=== PATIENT | female | born 1985 | race Caucasian/White ===

== ENCOUNTER → 2016-07-31 | Outpatient (REF) | payer MEDICARE, MEDICAID | LOC: M LAB REF 16:30 | PROVIDERS: ATTEND Nurse Practitioner Women's Health | DX: Z11.3 Encounter for screening for infections with a predominantly sexual mode of transmission (principal) ==

== ENCOUNTER → 2016-08-01 | Outpatient (CLI) | payer MEDICARE, MEDICAID ==
[2016-08-01 14:21] LABS: CONTROL LINE INT CTR LINE PRESENT; HIV SCRN NEGATIVE (NEGATIVE); HIV SCRN1 NEGATIVE (NEGATIVE)
== END ==
LOC: M WUC 09:41
PROVIDERS: ATTEND Nurse Practitioner Women's Health
DX: Z11.3 Encounter for screening for infections with a predominantly sexual mode of transmission (principal)

== ENCOUNTER → 2016-11-25 | Outpatient (REF) | payer MEDICARE | LOC: M LAB REF 16:26 | PROVIDERS: ATTEND Nurse Practitioner Women's Health | DX: R30.0 Dysuria (principal) ==

== ENCOUNTER 2017-01-29 09:27 | Emergency (ER) | payer MEDICARE, MEDICAID ==
[~2017-01-29] VITALS: Ht 170.2 cm; Wt 63.6 kg
[2017-01-29] MEDS ORDERED: BACL10TA2 (09:34)
[2017-01-29] MEDS ORDERED: TRI-TAB16 (09:34)
[2017-01-29] MEDS ORDERED: CYCL10TA PO (10:34)
[2017-01-29] MEDS ORDERED: MOBI4TAB PO (10:34)
[2017-01-29 10:51] VITALS: BP 122/81
--- NOTE | 2017-01-29 10:52 | REP ---
THORACIC SPINE: AP and lateral views of the thoracic spine are performed with three total views obtained. I do not see evidence of a compression fracture or malalignment. There are spinal rods and pedicle screws seen between the levels of T5 and T12. There is mild diffuse spurring. IMPRESSION: No acute fracture or dislocation. Spinal rods and screws appear intact. Signed by Michele Blackwell MD 01/29/2017 01:31 P
== END 2017-01-29 10:53 | disposition home or self-care (01) ==
LOC: M ED 09:27
DX: M54.6 Pain in thoracic spine (principal)

== ENCOUNTER → 2017-08-24 | Outpatient (REF) | payer MEDICARE ==
[2017-08-25 13:09] LABS: CHLAMYDIA DNA AMPLIFICATION NEGATIVE (NEGATIVE); GC DNA AMPLIFICATION NEGATIVE (NEGATIVE)
== END ==
LOC: M LAB REF 10:24
DX: R39.15 Urgency of urination (principal); R82.90 Unspecified abnormal findings in urine
CPT/HCPCS: 87088; 87186

== ENCOUNTER → 2017-09-15 | Outpatient (REF) | payer MEDICARE ==
[2017-09-15 18:50] LABS: APPEARANCE, URINE TURBID (CLEAR); BACTERIA, URINE AUTO 2+ (NEGATIVE); BILIRUBIN, URINE AUTO NEGATIVE (NEGATIVE); BLOOD, URINE BLOOD 2+ (NEGATIVE); COLOR, URINE YELLOW (YELLOW); GLUCOSE, URINE (UA) AUTO NEGATIVE (NEGATIVE); KETONE, URINE AUTO NEGATIVE (NEGATIVE); LEUKOCYTE ESTERASE, URINE AUTO 3+ (NEGATIVE); NITRITE, URINE AUTO NEGATIVE (NEGATIVE); PROTEIN, URINE AUTO NEGATIVE (NEGATIVE); RBC, URINE AUTO 30 /HPF (0-3); SPECIFIC GRAVITY URINE AUTO 1.012 (1.002-1.035); SQUAMOUS EPITHELIAL CELL UR AU 61 /HPF (0-6); UROBILINOGEN, URINE AUTO 0.2 mg/dL (0.0-2.0); WBC, URINE AUTO TNTC /HPF (0-3)
== END ==
LOC: M LAB REF 17:25
DX: N39.0 Urinary tract infection, site not specified (principal)
CPT/HCPCS: 81001

== ENCOUNTER → 2017-10-04 | Outpatient (REF) | payer OTHER, MEDICARE ==
[2017-10-04 12:51] LABS: APPEARANCE, URINE CLEAR (CLEAR); BACTERIA, URINE AUTO NEGATIVE (NEGATIVE); BILIRUBIN, URINE AUTO NEGATIVE (NEGATIVE); BLOOD, URINE BLOOD NEGATIVE (NEGATIVE); COLOR, URINE COLORLESS (YELLOW); GLUCOSE, URINE (UA) AUTO NEGATIVE (NEGATIVE); KETONE, URINE AUTO NEGATIVE (NEGATIVE); LEUKOCYTE ESTERASE, URINE AUTO NEGATIVE (NEGATIVE); NITRITE, URINE AUTO NEGATIVE (NEGATIVE); PROTEIN, URINE AUTO NEGATIVE (NEGATIVE); RBC, URINE AUTO 0 /HPF (0-3); SPECIFIC GRAVITY URINE AUTO 1.001 (1.002-1.035); SQUAMOUS EPITHELIAL CELL UR AU 0 /HPF (0-6); UROBILINOGEN, URINE AUTO 0.2 mg/dL (0.0-2.0); WBC, URINE AUTO 0 /HPF (0-3)
== END ==
LOC: M LAB 12:16
DX: N39.0 Urinary tract infection, site not specified (principal)
CPT/HCPCS: 81001

== ENCOUNTER → 2017-10-05 | Outpatient (REF) | payer OTHER, MEDICARE ==
[2017-10-05 18:11] LABS: APPEARANCE, URINE CLOUDY (CLEAR); BACTERIA, URINE AUTO 2+ (NEGATIVE); BILIRUBIN, URINE AUTO NEGATIVE (NEGATIVE); BLOOD, URINE BLOOD NEGATIVE (NEGATIVE); COLOR, URINE YELLOW (YELLOW); GLUCOSE, URINE (UA) AUTO NEGATIVE (NEGATIVE); KETONE, URINE AUTO NEGATIVE (NEGATIVE); LEUKOCYTE ESTERASE, URINE AUTO TRACE (NEGATIVE); MUCUS, URINE SMALL (NEGATIVE); NITRITE, URINE AUTO NEGATIVE (NEGATIVE); PROTEIN, URINE AUTO NEGATIVE (NEGATIVE); RBC, URINE AUTO 2 /HPF (0-3); SPECIFIC GRAVITY URINE AUTO 1.016 (1.002-1.035); SQUAMOUS EPITHELIAL CELL UR AU 28 /HPF (0-6); UROBILINOGEN, URINE AUTO 0.2 mg/dL (0.0-2.0); WBC, URINE AUTO 3 /HPF (0-3)
== END ==
LOC: M LAB REF 16:42
DX: N39.0 Urinary tract infection, site not specified (principal)

== ENCOUNTER → 2017-12-29 | Outpatient (REF) | payer OTHER, MEDICARE ==
[2017-12-29 17:29] LABS: ALBUMIN 4.4 GM/DL (3.2-5.2); ALBUMIN/GLOBULIN RATIO 1.42 (1.00-1.93); ALKALINE PHOSPHATASE 63 U/L (45-117); ALT/SGPT 27 U/L (12-78); ANION GAP 6 MEQ/L (8-16); AST/SGOT 19 U/L (7-37); BILIRUBIN,TOTAL 0.7 MG/DL (0.2-1.0); BLOOD UREA NITROGEN 15 MG/DL (7-18); CALCIUM LEVEL 8.9 MG/DL (8.5-10.1); CARBON DIOXIDE LEVEL 28 MEQ/L (21-32); CHLORIDE LEVEL 107 MEQ/L (98-107); CREATININE FOR GFR 0.73 MG/DL (0.55-1.30); GLOMERULAR FILTRATION RATE > 60.0 (>60); GLUCOSE, FASTING 72 MG/DL (70-100); MAGNESIUM LEVEL 2.2 MG/DL (1.8-2.4); POTASSIUM SERUM 3.8 MEQ/L (3.5-5.1); SODIUM LEVEL 141 MEQ/L (136-145); TOTAL PROTEIN 7.5 GM/DL (6.4-8.2)
[2017-12-29 17:41] LABS: BASO # 0.1 10^3/uL (0.0-0.2); BASO % 0.6 % (0.0-1.0); EOS # 0.2 10^3/uL (0.0-0.50); EOS % 2.1 % (0.0-3.0); HEMATOCRIT 37.2 % (36.0-47.0); HEMOGLOBIN 12.5 g/dl (12.0-15.5); IMMATURE GRANULOCYTE % 0.4 % (0-3.0); LYMPH # 2.2 10^3/uL (1.5-4.5); LYMPH % 20.5 % (24.0-44.0); MEAN CORPUSCULAR HEMOGLOBIN 29.5 pg (27.0-33.0); MEAN CORPUSCULAR HGB CONC 33.6 g/dl (32.0-36.5); MEAN CORPUSCULAR VOLUME 87.7 fl (80.0-96.0); MONO # 0.9 10^3/uL (0.0-0.8); MONO % 8.4 % (0.0-5.0); NEUTROPHILS # 7.4 10^3/uL (1.8-7.7); PLATELET COUNT, AUTOMATED 231 10^3/uL (150-450); RED BLOOD COUNT 4.24 10^6/uL (4.00-5.40); RED CELL DISTRIBUTION WIDTH 12.6 % (11.5-14.5); WHITE BLOOD COUNT 10.8 10^3/uL (4.0-10.0)
== END ==
LOC: M SFHCPLAZ 15:22
DX: M62.830 Muscle spasm of back (principal); N31.9 Neuromuscular dysfunction of bladder, unspecified
CPT/HCPCS: 83735

== ENCOUNTER → 2018-04-05 | Outpatient (REF) | payer OTHER, MEDICARE ==
[2018-04-06 12:26] LABS: CHLAMYDIA DNA AMPLIFICATION NEGATIVE (NEGATIVE); GC DNA AMPLIFICATION NEGATIVE (NEGATIVE)
== END ==
LOC: M LAB REF 09:12
DX: N30.81 Other cystitis with hematuria (principal)

== ENCOUNTER → 2018-04-15 | Outpatient (REF) | payer OTHER, MEDICARE ==
[2018-04-15 14:36] LABS: APPEARANCE, URINE MANUAL HAZY (CLEAR); COLOR, URINE MANUAL COLORLESS (YELLOW)
[2018-04-15 14:37] LABS: GLUCOSE, URINE (UA) MANUAL NEGATIVE (NEGATIVE); PH,URINE MAN 7.5 UNITS (5.0 - 7.0); PROTEIN, URINE MANUAL NEGATIVE (NEGATIVE); SPECIFIC GRAVITY,URINE MANUAL 1.005 (1.002-1.035)
[2018-04-15 14:38] LABS: BILIRUBIN, URINE MANUAL NEGATIVE (NEGATIVE); BLOOD URINE MANUAL NEGATIVE (NEGATIVE); KETONE, URINE MANUAL NEGATIVE (NEGATIVE); LEUKOCYTE ESTERASE, URINE MAN TRACE (NEGATIVE); MICROSCOPIC INDICATED? MAN YES (NO); NITRITE, URINE MANUAL NEGATIVE (NEGATIVE); UROBILINOGEN, URINE MANUAL NORMAL (NORMAL)
[2018-04-15 14:48] LABS: BACTERIA, URINE LARGE AMOUNT; RBC, URINE 0-1 /hpf (0-3); SQUAMOUS EPITHELIAL CELL URINE LARGE AMOUNT /hpf (SMALL AMT)
[2018-04-15 14:51] LABS: AMORPHOUS SEDIMENT, URINE SMALL AMOUNT (NEGATIVE); HYALINE CAST, URINE NONE SEEN /lpf (0-1); MICROSCOPIC EXAM PERFORMED
== END ==
LOC: M LAB REF 13:38
DX: N39.0 Urinary tract infection, site not specified (principal)
CPT/HCPCS: 81015

== ENCOUNTER → 2018-05-03 | Outpatient (REF) | payer OTHER, MEDICARE | LOC: M SFHCPLAZ 05-04 12:44 | DX: R30.0 Dysuria (principal) ==

== ENCOUNTER → 2018-06-25 | Outpatient (CLI) | payer OTHER, MEDICARE ==
[~2018-06-25] MED LIST: BACL10TA2; CYCL10TA PO; MOBI4TAB PO; TRI-TAB16
[2018-06-25 15:46] LABS: FREE T4 1.02 NG/DL (0.76-1.46); THYROID STIMULATING HORMONE 0.863 uIU/ML (0.358-3.740)
[2018-06-25 15:48] LABS: PROLACTIN 11.2 NG/ML
[2018-06-28 09:56] LABS: HEPATITIS C VIRUS ABY INDEX 0.2 INDEX (<0.8); HIV 1&2 SCREEN CENTAUR NEGATIVE (NEGATIVE)
[2018-06-28 11:02] LABS: HEPATITIS B SURFACE ANTIGEN NEGATIVE (NEGATIVE)
== END ==
LOC: M WUC 11:11
PROVIDERS: ATTEND Nurse Practitioner Women's Health
DX: Z11.3 Encounter for screening for infections with a predominantly sexual mode of transmission (principal); N92.6 Irregular menstruation, unspecified

== ENCOUNTER → 2018-10-03 | Outpatient (REF) | payer OTHER, MEDICARE | LOC: M WUC 10:25 | PROVIDERS: ATTEND Physician Assistant | DX: R30.0 Dysuria (principal) ==

== ENCOUNTER → 2019-05-10 | Outpatient (CLI) | payer OTHER, MEDICARE ==
--- NOTE | 2019-05-10 11:28 | REP ---
Five views lumbar and three views thoracic spine: 05/10/2019. Indication: Thoracolumbar pain. Comparison: 01/29/2017. Findings: There is no evidence of acute fracture, subluxation or dislocation. Posterior instrument effusion extends from T5-T12. The surgical hardware appears intact. Retrievable IVC filter is noted. No lytic osseous lesions are detected. Slightly exaggerated lumbar lordosis is present. No significant paraspinal soft tissue abnormalities are detected. Impression: No acute thoracolumbar spine osseous injury. Electronically Signed by Campbell Menezes DO 05/10/2019 11:19 A
== END ==
LOC: M RAD 09:10
PROVIDERS: ATTEND Physician Assistant Medical
DX: M54.5 Low back pain (principal)

== ENCOUNTER → 2019-06-16 | Outpatient (CLI) | payer OTHER ==
--- NOTE | 2019-06-16 17:54 | REPVR ---
PROCEDURE INFORMATION: Exam: CT Cervical Spine Without Contrast Exam date and time: 06/16/2019 5:03 PM Age: 33 years old Clinical indication: Pain; Cervicalgia; Prior surgery; Surgery date: 6+ months; Surgery type: Spinal fusion; Additional info: Acute back pain, HX of fusion of spine TECHNIQUE: Imaging protocol: Computed tomography images of the cervical spine without contrast. Radiation optimization: All CT scans at this facility use at least one of these dose optimization techniques: automated exposure control; mA and/or kV adjustment per patient size (includes targeted exams where dose is matched to clinical indication); or iterative reconstruction. COMPARISON: CT Spine,cervical w/o contrast 03/20/2016 2:51 PM FINDINGS: Vertebrae: No acute fracture. Reversal of cervical lordosis likely positional and is stable in comparison to the prior study of 03/20/2016. Discs/Spinal canal/Neural foramina: Small posterior disc protrusion C5-C6 effaces the ventral subarachnoid space with mild mid to left hemicord impingement. Soft tissues: Unremarkable. Lungs: Lung apices are normal. IMPRESSION: 1. Small disc protrusion at C5-C6 with mild mid to left hemicord impingement. 2. Reversal of cervical lordosis which is stable. Otherwise unremarkable. Electronically signed by: Arian Tran On 06/16/2019 17:54:37 PM
--- NOTE | 2019-06-16 18:07 | REPVR ---
PROCEDURE INFORMATION: Exam: CT Thoracic Spine Without Contrast Exam date and time: 06/16/2019 5:03 PM Age: 33 years old Clinical indication: Pain in thoracic spine; Prior surgery; Surgery date: 6+ months; Surgery type: Spinal fusion; Additional info: Acute back pain, HX of fusion of spine TECHNIQUE: Imaging protocol: Computed tomography images of the thoracic spine without contrast. Radiation optimization: All CT scans at this facility use at least one of these dose optimization techniques: automated exposure control; mA and/or kV adjustment per patient size (includes targeted exams where dose is matched to clinical indication); or iterative reconstruction. COMPARISON: CT Spine,thoracic w/o contrast 03/20/2016 2:53 PM FINDINGS: Vertebrae: Redemonstration of 13 rib-bearing vertebral bodies. Status post T6-L1 posterior spinal fusion using Robertson rods and transpedicular screws. Pedicle screw on the left at T7 extends minimally beyond the anterior cortical margin of the vertebral body pedicle screw on the right at T12 extends through the pedicle outside the anterolateral cortical margin of the vertebral body. Discs/Spinal canal/Neural foramina: No spinal stenosis. Soft tissues: Unremarkable. IMPRESSION: Status post transfixation of the thoracic spine from T6-L1 using Robertson rods as described above. At 2 levels the transpedicular screws extend beyond the anterior and anterolateral cortical margins of T7 and T12. It should be noted the findings are stable in comparison to the prior study of 03/20/2016. Electronically signed by: Arian Tran On 06/16/2019 18:06:48 PM
--- NOTE | 2019-06-16 18:11 | REPVR ---
PROCEDURE INFORMATION: Exam: CT Lumbar Spine Without Contrast Exam date and time: 06/16/2019 5:03 PM Age: 33 years old Clinical indication: Pain; Other: Back; Prior surgery; Surgery date: 6+ months; Surgery type: Spinal fusion; Additional info: Acute back pain, HX of fusion of spine TECHNIQUE: Imaging protocol: Computed tomography images of the lumbar spine without contrast. Radiation optimization: All CT scans at this facility use at least one of these dose optimization techniques: automated exposure control; mA and/or kV adjustment per patient size (includes targeted exams where dose is matched to clinical indication); or iterative reconstruction. COMPARISON: CT Spine, lumbar w/o contrast 03/20/2016 2:53 PM FINDINGS: Tubes, catheters and devices: IVC filter demonstrated. Vertebrae: No acute fracture. Normal alignment. Discs/Spinal canal/Neural foramina: Disc bulge at L3-L4 with minimal flattening of the ventral subarachnoid space and without significant spinal stenosis. There is a mild spinal stenosis secondary at L4-L5 to diffuse annular bulging. Soft tissues: Unremarkable. IMPRESSION: 1. Disc bulges at L3-L4 and L4-L5 and a mild central spinal stenosis at L4-L5. 2. Otherwise unremarkable. Electronically signed by: Arian Tran On 06/16/2019 18:11:29 PM
== END ==
LOC: M RAD 16:52
PROVIDERS: ATTEND Physician Assistant Medical
DX: M43.24 Fusion of spine, thoracic region (principal); M50.222 Other cervical disc displacement at C5-C6 level; M51.26 Other intervertebral disc displacement, lumbar region; M48.061 Spinal stenosis, lumbar region without neurogenic claudication

== ENCOUNTER → 2019-08-19 | Outpatient (CLI) | payer OTHER ==
--- NOTE | 2019-08-19 17:00 | REPVR ---
PROCEDURE INFORMATION: Exam: MR Cervical Spine Without Contrast Exam date and time: 08/19/2019 2:29 PM Age: 33 years old Clinical indication: Condition or disease; Other: Cervical and lumbar disc herniation TECHNIQUE: Imaging protocol: Multiplanar magnetic resonance images of the cervical spine without contrast. COMPARISON: CT Spine,cervical w/o contrast 06/16/2019 5:10 PM. FINDINGS: Vertebrae: Reversal of the cervical lordosis may be positional or due to muscle spasm, as before. No acute fracture seen. 4 mm T1 hypointense, STIR hyperintense lesion in the T1 spinous process is nonspecific, potentially represents a hemangioma. No CT correlate is identified on the prior study. Spinal cord: Normal signal. No cord compression. There is disc desiccation from C2-C3 through C6-C7. Minimal disc height loss at C5-C6. C2-C3: Unremarkable. C3-C4: Slight disc bulge does not contribute to central spinal canal stenosis. Minimal uncovertebral arthropathy without contribution to foraminal stenoses. C4-C5: The central spinal canal is patent. Uncovertebral arthropathy is mild. Moderate left neural foraminal stenosis due to a left foraminal disc extrusion which measures approximately 3 mm in AP dimension, extends approximately 6 mm above the disc space and 3 mm below the disc space, image 5 series 301. No significant right neural foraminal narrowing. C5-C6: Mild left eccentric disc bulge does not contribute to central spinal canal stenosis. High-intensity zone in left posterior disc margin without a focal disc protrusion or extrusion. Uncovertebral arthropathy causing mild bilateral neural foraminal stenoses. C6-C7: Mild disc bulge does not contribute to central spinal canal stenosis. Uncovertebral and facet arthropathy, in particular on the left causing moderate left and mild right neural foraminal stenoses. C7-T1: Evaluated on the sagittal imaging. The central spinal canal is patent. Uncovertebral and facet arthropathy causing mild bilateral neural foraminal stenoses. 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 Vertebral arteries: Expected flow voids in the vertebral arteries. Soft tissues: Unremarkable. IMPRESSION: A left foraminal disc extrusion at C4-C5 causes moderate left neural foraminal stenosis. Moderate degenerative left neural foraminal stenosis at C6-C7. Mild foraminal stenoses elsewhere. Electronically signed by: Phylicia Mcgowan On 08/19/2019 17:00:47 PM
--- NOTE | 2019-08-19 17:22 | REPVR ---
PROCEDURE INFORMATION: Exam: MR Lumbar Spine Without Contrast. Exam date and time: 08/19/2019 2:29 PM Age: 33 years old Clinical indication: Condition or disease; Disc displacement; Lumbar sacral region; Additional info: Cervical and lumbar disc herniation TECHNIQUE: Imaging protocol: Multiplanar magnetic resonance images of the lumbar spine without intravenous contrast. COMPARISON: CT Spine, lumbar w/o contrast 06/16/2019 5:[address] Spine,thoracic w/o contrast 03/20/2016 2:53:48 PM. FINDINGS: Vertebrae: There are 13 rib-bearing thoracic vertebral bodies. A thoracic fusion extends to the T13 level. This designates 5 lumbar type vertebral bodies. Mild exaggeration of the lumbar lordosis. No acute fracture seen. Spinal cord: The conus medullaris ends at a normal level. L1-L2: No significant disc disease. No significant spinal canal stenosis. No neural foraminal stenosis. L2-L3: No significant disc disease. No significant spinal canal stenosis. No neural foraminal stenosis. L3-L4: No significant disc disease. No significant spinal canal stenosis. No neural foraminal stenosis. L4-L5: Mild disc bulge, facet arthropathy and ligamentum flavum buckling. The central spinal canal remains patent. Slight lateral recess narrowing, probably not significant. The right foraminal disc protrusion measures approximately 3-4 mm in AP dimension causing ukjc-bc-kwuqksmr right neural foraminal stenosis, potentially contacting the exiting right L4 nerve root. This is probably unchanged. Left neural foraminal stenosis is mild. L5-S1: Mild facet arthropathy. No stenoses. Soft tissues: Unremarkable. IMPRESSION: A right foraminal disc protrusion at L4-L5 may be cause of right L4 distribution radiculopathy. Electronically signed by: Phylicia Mcgowan On 08/19/2019 17:22:33 PM
== END ==
LOC: M RAD 12:22
PROVIDERS: ATTEND Neuromusculoskeletal Medicine & OMM
DX: M50.123 Cervical disc disorder at C6-C7 level with radiculopathy (principal); M50.20 Other cervical disc displacement, unspecified cervical region; M51.26 Other intervertebral disc displacement, lumbar region

== ENCOUNTER → 2020-10-09 | Outpatient (CLI) | payer OTHER ==
[~2020-10-09] MED LIST changes: +CYCL-707 PO; -CYCL10TA PO
--- NOTE | 2020-10-09 12:18 | REP ---
INDICATION: SPINAL STENOSIS,DDD. COMPARISON: Plain film study 05/10/2019. MR lumbar spine 08/19/2019 TECHNIQUE: Sagittal T1, T2,STIR, axial T1 and T2 weighted images of the lumbar spine are obtained. FINDINGS: Fusion hardware seen from T12 and more superior within the thoracic spine. Within the lumbar spine, sagittal T2-weighted images evidence no significant canal stenosis. The conus ends appears to end at T12 level. There is of progressed degenerative disease immediately below the level of fusion, T12-L1 level, with loss of disc height, disc desiccation and diffuse disc bulge. This degenerative change results in zocf-iu-qewlerza canal stenosis and ewev-xf-xbtiuxns bilateral foraminal narrowing. At the remaining levels, At L1-2 and L2-3 no significant canal or foraminal narrowing At L3-4 diffuse disc bulge with mild canal narrowing and mild bilateral foraminal narrowing At L4-5 diffuse disc bulge with mild canal narrowing and mild bilateral foraminal narrowing. As noted on the comparison study 08/19/2019, there is broad-based and shallow right foraminal disc protrusion that comes in close proximity with the exiting right-sided nerve root. This is not significantly changed from the comparison study of 08/19/2019. At L5-S1 no significant canal or foraminal narrowing. IMPRESSION: 1. The most inferior aspects of thoracic fusion and fusion hardware are seen on the current study. 2. Mild multilevel degenerative disc disease within the lumbar spine. 3. Focal degenerative disc disease at the T12-L1 level, immediately beneath the fusion. At T12-L1 loss of disc height, diffuse disc bulge, and endplate changes. There is azkn-df-fylorfhs canal stenosis and ipxl-ra-nblhyovm bilateral foraminal narrowing noted at this level. 4. At L4-5 diffuse disc bulge with mild canal narrowing and mild bilateral foraminal narrowing. As noted on the comparison study 08/19/2019, there is broad-based and shallow right foraminal disc protrusion that comes into close proximity with the exiting right-sided nerve root at this level. This is not significantly changed from the comparison study of 08/19/2019. <Electronically signed by Hasmukh Mojica > 10/09/20 [id number]
== END ==
LOC: M RAD 10:18
PROVIDERS: ATTEND Neuromusculoskeletal Medicine & OMM
DX: M51.36 Other intervertebral disc degeneration, lumbar region (principal); M48.061 Spinal stenosis, lumbar region without neurogenic claudication; G82.20 Paraplegia, unspecified

== ENCOUNTER → 2020-12-03 | Outpatient (CLI) | payer OTHER ==
--- NOTE | 2020-12-03 10:56 | REP ---
INDICATION: PAIN, IMPINGEMENT, DJD COMPARISON: None. TECHNIQUE: AP and frog-lateral views of the left hip FINDINGS: Mild increased sclerosis to the acetabular roof with joint space narrowing suggested. Remainder of the examination is grossly normal. There is no evidence for acute or healed injury. IMPRESSION: Mild generalized degenerative changes. <Electronically signed by Pavel Alonzo > 12/03/20 [id number]
== END ==
LOC: M WUC 10:08
DX: M89.8X8 Other specified disorders of bone, other site (principal)

== ENCOUNTER → 2022-04-27 | Outpatient (REF) | payer OTHER, BC | LOC: M WUC 09:49 | PROVIDERS: ATTEND Student in an Organized Health Care Education/Training Program | DX: R30.0 Dysuria (principal) ==

== ENCOUNTER → 2025-04-13 | Outpatient (REF) | payer BC, MEDICARE ==
[2025-04-13 19:29] LABS: APPEARANCE, URINE CLEAR (CLEAR); BACTERIA, URINE AUTO NEGATIVE (NEGATIVE); BILIRUBIN, URINE AUTO NEGATIVE (NEGATIVE); BLOOD, URINE BLOOD NEGATIVE (NEGATIVE); GLUCOSE, URINE (UA) AUTO NEGATIVE (NEGATIVE); KETONE, URINE AUTO NEGATIVE (NEGATIVE); LEUKOCYTE ESTERASE, URINE AUTO NEGATIVE (NEGATIVE); NITRITE, URINE AUTO NEGATIVE (NEGATIVE); PROTEIN, URINE AUTO NEGATIVE (NEGATIVE); RBC, URINE AUTO 0 /HPF (0-3); SPECIFIC GRAVITY URINE AUTO 1.001 (1.002-1.035); SQUAMOUS EPITHELIAL CELL UR AU 0 /HPF (0-6); UROBILINOGEN, URINE AUTO 0.2 mg/dL (0.0-2.0); WBC, URINE AUTO 0 /HPF (0-3)
== END ==
LOC: M SFHCWAGY 16:52
PROVIDERS: ATTEND Advanced Practice Midwife
DX: R35.0 Frequency of micturition (principal); R30.0 Dysuria